=== PATIENT | female | born 1990 | race Caucasian/White ===

== ENCOUNTER 2018-08-07 21:00 | Inpatient (IN) | payer OTHER ==
[2018-08-08] MEDS ORDERED: Ibuprofen 800 MG TAB PO PRN (00:04)
[2018-08-08] MEDS ORDERED: Lactated Ringer's 1,000 ML IV SCH ×2 (00:04→20:47)
[2018-08-08] MEDS ORDERED: NS / Oxytocin 40 units/1000ml 1,000 ML IV PRN (00:04)
[2018-08-08] MEDS ORDERED: Promethazine HCl 25 MG/ML VIAL IM PRN ×3 (00:04→17:27)
[2018-08-08] MEDS ORDERED: Ondansetron PF 4 MG/2 ML Vial IVP PRN ×4 (00:04→20:47)
[2018-08-08] MEDS ORDERED: HYDROcodone/Acetaminophen 5/325 mg Tablet PO PRN ×4 (00:04→20:47)
[2018-08-08] MEDS ORDERED: Butorphanol Tartrate 1 MG/ML VIAL SLOW IVP PRN (00:04)
[2018-08-08] MEDS ORDERED: Lidocaine 1% (PF) 30 ML VIAL SC PRN (00:04)
[2018-08-08 00:18] LABS: Hemoglobin 12.8 g/dL (12.0-16.0); Mean Corpuscular HGB CONC 34.1 g/dL (32.0-36.0); Mean Corpuscular Hemoglobin 32.3 pg (27.0-31.0); Mean Corpuscular Volume 94.7 fL (78.0-98.0); Platelet Count 152 thou/uL (130-400); RBC Distribution Width 11.8 % (11.5-14.5); Red Blood Cell (RBC) Count 3.96 mill/uL (4.20-5.40); White Blood Cell (WBC) Count 14.4 thou/uL (4.8-10.8)
[2018-08-08] MEDS ORDERED: Misoprostol 100 MCG TAB ONE (00:36)
[2018-08-08] MEDS: Misoprostol 100 MCG TAB VAG SCH ×3 (00:40→07:25)
[2018-08-08] MEDS: Lactated Ringer's 1,000 ML IV SCH ×2 (00:50→09:46)
[2018-08-08 00:53] LABS: Hep B Surf Ag Non-Reactive S/CO (NonReactive); Syphilis Antibody Nonreactive (Nonreactive); Syphilis Antibody Index 0.03 S/CO (<1.00 Non-Reactive)
[2018-08-08 01:14] VITALS: BMI 25.6
[2018-08-08] MEDS: NS w/ Oxytocin 10 units 500 ML IV SCH ×2 (01:31→08:22)
[2018-08-08] MEDS ORDERED: Terbutaline Sulfate 1 MG/ML VIAL ONE (05:37)
[2018-08-08] MEDS ORDERED: Fentanyl 4 mcg/Bup 0.1% Cadd 100 ML ONE ×2 (08:47→15:14)
[2018-08-08] MEDS ORDERED: Lidocaine 1.5%/Epinephrine 1:200,000 5 ML AMPUL IJ ONE (08:48)
[2018-08-08] MEDS ORDERED: Acetaminophen 325 MG TAB PO PRN ×2 (09:05→20:47)
[2018-08-08] MEDS ORDERED: diphenhydrAMINE 50 MG/ML VIAL IVP PRN ×2 (09:05→17:27)
[2018-08-08] MEDS ORDERED: Naloxone HCl 0.4 mg/ml Vial IVP PRN ×4 (09:05→17:27)
[2018-08-08] MEDS ORDERED: ePHEDrine/0.9% NaCl/PF SYRINGE 50 mg/10 ml SLOW IVP PRN (09:05)
[2018-08-08] MEDS ORDERED: Eucerin (Mineral Oil/Petrolatum,White) 30 gm Jar TOP PRN ×2 (09:05→17:27)
[2018-08-08] MEDS ORDERED: Lactated Ringer's 500 ML IV PRN (09:05)
[2018-08-08] MEDS ORDERED: Fentanyl 4 mcg/Bupivacaine 0.1% Cassette 100 ML EPIDURAL SCH (09:15)
[2018-08-08] MEDS ORDERED: Communication Order-Pharmacy FS SCH ×2 (09:15→17:30)
[2018-08-08] MEDS ORDERED: Dexamethasone 20 MG/5 ML VIAL ONE (13:52)
[2018-08-08] MEDS ORDERED: Ketorolac Tromethamine 30 MG/ML VIAL ONE (13:52)
[2018-08-08] MEDS ORDERED: Ondansetron PF 4 MG/2 ML Vial ONE (13:52)
[2018-08-08] MEDS ORDERED: CEFAZOLIN 2 GM in Sodium Chloride 0.9% 100 ML IVPB SCH (17:00)
--- NOTE | 2018-08-08 17:04 | PDOC.LDPN ---
Labor & Delivery Progress Note - Subjective Subjective: comfortable - Objective Vital signs reviewed and normal: yes General: NAD Uterine fundus: non tender Dilation: 4 Effacement: 90% Station: 0 FHT: category 1, variable decelerations AROM: clear fluid IUPC placed: yes Plan: other (no cervical change with 250+ mvu for 5 hr. for primary cs )
[2018-08-08] MEDS ORDERED: CEFAZOLIN 2 GM in Premix Bag 1 BAG IVPB SCH (17:15)
[2018-08-08] MEDS ORDERED: Bicitra 30 ML UDCUP PO SCH (17:15)
[2018-08-08] MEDS ORDERED: Naloxone HCl 0.4 mg/ml Vial IV PRN (17:27)
[2018-08-08] MEDS ORDERED: Meperidine HCl/PF 25 MG/ML VIAL SLOW IVP PRN (17:27)
[2018-08-08] MEDS ORDERED: L&D-Morphine 4 MG/ML VIAL SLOW IVP PRN (17:27)
[2018-08-08] MEDS ORDERED: Promethazine HCl 25 MG SUPP PR PRN (17:27)
[2018-08-08] MEDS ORDERED: Ondansetron HCl/PF 4 MG/2 ML Vial IVP PRN (17:27)
[2018-08-08] MEDS ORDERED: Ketorolac Tromethamine 30 MG/ML VIAL IVP SCH (17:30)
[2018-08-08] MEDS ORDERED: Azithromycin 500 MG in Sodium Chloride 0.9% 250 ML 250 ML IVPB SCH (17:30)
[2018-08-08 18:03] LABS: Actual Bicarbonate (HCO3v) 28 mEq/L (22-28); Base Excess -0.3 mEq/L (-2.0 to +3.0); pH (Cord, venous) 7.29 (7.32-7.43)
[2018-08-08 18:05] LABS: Actual Bicarbonate (HCO3a) 27.9 mEq/L (22-28)
[2018-08-08] MEDS ORDERED: Bupivacaine/Epinephrine 0.25% 30 ML VIAL ONE (20:11)
[2018-08-08] MEDS ORDERED: Meperidine HCl/PF 25 MG/ML VIAL IM PRN (20:47)
[2018-08-08] MEDS ORDERED: Zolpidem Tartrate 5 MG TAB PO PRN (20:47)
[2018-08-08] MEDS ORDERED: diphenhydrAMINE 25 MG CAP PO PRN (20:47)
[2018-08-08] MEDS ORDERED: NS / Oxytocin 40 units/1000ml 1,000 ML IV SCH (20:47)
[2018-08-08] MEDS ORDERED: Ibuprofen 800 MG TAB PO SCH (22:00)
[2018-08-08] MEDS: Ketorolac Tromethamine 30 MG/ML VIAL IVP PRN (23:45)
[2018-08-09] MEDS: Misoprostol 100 MCG TAB VAG SCH ×9 (00:44→21:25)
[2018-08-09] MEDS: Docusate Calcium (SURFAK) 240 MG CAP PO SCH ×3 (00:48→21:23)
[2018-08-09] MEDS: Lactated Ringer's 1,000 ML IV SCH ×3 (00:49→13:55)
--- NOTE | 2018-08-09 05:14 | OP ---
DATE OF PROCEDURE: 08/08/2018 PREOPERATIVE DIAGNOSES: Failure to progress at 5 cm, 39- to 40-week gestation despite greater than 250 mVu for more than 4 hours at 4-5 cm. POSTOPERATIVE DIAGNOSES: Failure to progress at 5 cm, 39- to 40-week gestation despite greater than 250 mVufor more than 4 hours at 4-5 cm and persistent occiput posterior presentation. PROCEDURE PERFORMED: Primary low transverse section without extension. DRY WALL NAILER: Howard Mcduffie MD ANESTHESIA: Epidural by Kingsley Etienne MD MEDICATIONS: 2 g Ancef and 500 of Zithromax. PREINCISION: DVT prophylaxis with SCDs. DRAINS: [place] to gravity. OPERATIVE FINDINGS: 1. Female infant, Apgars and weight pending through nursery. 2. Clear fluid, persistent OP presentation. 3. Normal-appearing uterus, tubes, and ovaries bilaterally. 4. Hemostasis, clear urine, counts correct at the end of the procedure. DISPOSITION: Recovery room in good condition. DESCRIPTION OF PROCEDURE: After obtaining appropriate operative consent, the patient was taken to operating room, where epidural had been dosed to appropriate level. The patient was prepped and draped in the usual manner. Pfannenstiel incision was made through the skin and carried down to the fascia, which was incised sharply and extended superiorly and laterally with curved Andrade scissors. Rectus dissected off sharply superiorly and inferiorly, divided in midline. Peritoneum entered bluntly, taking care to avoid trauma to the underlying viscera. Dedrick O retractor placed inside. Vesicouterine peritoneal reflection identified and low-transverse hysterotomy made at the level of the reflection. Clear fluid was encountered superiorly and laterally with finger fractionation. The infant's head elevated to hysterotomy, OP presentation. Fluid around the abdomen suctioned. Cord was clamped, cut, and handed off to the team in attendance. Cord blood sample obtained. Cord gas obtained. Placenta delivered manually. Uterus was curetted out and hysterotomy noted to be without extension. It was closed using a running locking #1 Monocryl suture in 2 layers. Gutters were irrigated out bilaterally and reinspection of hysterotomy revealed it to be dry. The Dedrick O retractor was removed and counts were correct x1. Rectus was inspected and noted to be dry. Fascia reapproximated using running continuous 0 PDS suture. Counts were correct x2. Subcu tissue was very thin and not reapproximated. Rendered hemostatic with Bovie cautery. Skin was reapproximated using 4-0 Monocryl and Dermabond. The patient was taken to recovery room in good condition. Job ID: [id number]
[2018-08-09] MEDS: Ketorolac Tromethamine 30 MG/ML VIAL IVP PRN ×2 (05:40→12:09)
--- NOTE | 2018-08-09 06:11 | PDOC.PP ---
Post Progress Note Post Day #: POD#1 Subjective: Resting, no c/o. PO intake tolerated: yes Flatus: no Ambulation: no Vital Signs (12 hours) Temp Pulse Resp BP Pulse Ox 08/09/18 04:00 98.5 F 54 L 18 103/89 96 08/08/18 23:20 98.6 F 62 18 118/72 96 08/08/18 22:15 97.6 F 52 L 18 115/63 96 08/08/18 20:15 98.2 F 66 18 116/77 99 Weight Weight 63.503 kg - Physical Examination General: NAD Respiratory: non-labored breathing Abdominal: no distention Skin: CS incision dry & intact Psychiatric: normal affect Result Diagrams: 08/07/18 23:12 Additional Labs: Post Labs Blood Type A POSITIVE 08/07/18 23:12 Hep Bs Antigen Non-Reactive S/CO (NonReactive) 08/07/18 23:12 - Assessment/Plan Doing well s/p C/S. Routine postop care.
[2018-08-09 07:53] LABS: Hemoglobin 12.2 g/dL (12.0-16.0); Mean Corpuscular HGB CONC 33.9 g/dL (32.0-36.0); Mean Corpuscular Hemoglobin 32.5 pg (27.0-31.0); Mean Corpuscular Volume 95.9 fL (78.0-98.0); Mean Platelet Volume 9.2 fL (7.4-10.4); Platelet Count 179 thou/uL (130-400); RBC Distribution Width 11.7 % (11.5-14.5); Red Blood Cell (RBC) Count 3.76 mill/uL (4.20-5.40); White Blood Cell (WBC) Count 28.1 thou/uL (4.8-10.8)
[2018-08-09] MEDS ORDERED: Adacel (T-DAP) 0.5 ML SYRINGE IM ONE (09:00)
[2018-08-09] MEDS ORDERED: Prenatal Vitamin 1 TAB PO SCH (09:00)
[2018-08-09] MEDS: Prenatal Vitamin 1 TAB PO SCH (09:53)
[2018-08-09] MEDS: Ibuprofen 800 MG TAB PO SCH (21:23)
[2018-08-09] MEDS: Simethicone Chewable 80 MG TAB PO PRN (21:24)
--- NOTE | 2018-08-10 01:34 | PDOC.PP ---
Post Progress Note Post Day #: 2 (today at 1700). Subjective: Patient requests discharge home today by noon (was asking to go home at 1900 shift change) PO intake tolerated: yes Flatus: yes Ambulation: yes Vital Signs (12 hours) Temp Pulse Resp BP BP 08/09/18 19:29 97.7 F 89 18 98/53 L 08/09/18 17:00 97.6 F 83 18 101/58 L Weight Weight 140 lb - Physical Examination General: NAD Cardiovascular: no m/r/g Respiratory: clear to auscultation bilaterally Abdominal: + bowel sounds, lochia, no distention, appropriately TTP Extremities: negative homans (B) Skin: CS incision dry & intact (Skin sutured and DB in place), no rash Neurological: no gross focal deficits Psychiatric: A&Ox3, normal affect Result Diagrams: 08/09/18 06:43 Additional Labs: Post Labs Blood Type A POSITIVE 08/07/18 23:12 Hep Bs Antigen Non-Reactive S/CO (NonReactive) 08/07/18 23:12 (1) Single delivery by section Code(s): O82 - ENCOUNTER FOR DELIVERY WITHOUT INDICATION Status: Acute - Assessment/Plan Patient is POD 2 today (48 hrs at 1700) doing well. I offerred her continued in house observation as she had a CS in labor, but patient desires [facility] home by noon today. I discussed possible risks for PP metritis, but patient desires release. I did review all vitals and confirmed she is afebrile. OK for home at noon today, as requested. Meds called to pharmacy by Dr Benitez. I recommended wound check in 2 weeks. Final DX: section, delivered Term delivery Routine
[2018-08-10] MEDS: Lactated Ringer's 1,000 ML IV SCH ×2 (04:14→11:54)
[2018-08-10] MEDS: Misoprostol 100 MCG TAB VAG SCH ×3 (04:14→12:25)
[2018-08-10] MEDS: NS w/ Oxytocin 10 units 500 ML IV SCH (04:14)
[2018-08-10] MEDS: Ibuprofen 800 MG TAB PO SCH (05:45)
[2018-08-10] MEDS: Docusate Calcium (SURFAK) 240 MG CAP PO SCH (09:58)
[2018-08-10] MEDS: Simethicone Chewable 80 MG TAB PO PRN (09:58)
[2018-08-10] MEDS: Prenatal Vitamin 1 TAB PO SCH (09:58)
[2018-08-10 11:35] VITALS: BP 104/70; TEMP 97.6
== END 2018-08-10 12:30 | disposition home or self-care (01) | DRG 788 ==
LOC: L&D 23:54 → 3SW 08-08 20:46
PROVIDERS: ADMIT Obstetrics & Gynecology; ATTEND Obstetrics & Gynecology
PROC: 10D00Z1 Extraction of Products of Conception, Low, Open Approach (ICD-10-PCS; principal; 2018-08-08)
DX: O64.0XX0 Obstructed labor due to incomplete rotation of fetal head, not applicable or unspecified (principal); O76 Abnormality in fetal heart rate and rhythm complicating labor and delivery; Z3A.39 39 weeks gestation of pregnancy; Z37.0 Single live birth
CPT/HCPCS: 36415; 51702; 82805; 85027; 86780; 86850; 86900; 86901; 87340; J0456; J0690; J1100; J1885; J2405; J3105; J3490; J7050

== ENCOUNTER 2019-11-05 11:29 | Outpatient (CLI) | payer OTHER ==
[2019-11-06 13:51] LABS: SARS-CoV-2 MS2 Positive; SARS-CoV-2 N Gene Negative; SARS-CoV-2 S Gene Negative; SARS-CoV-2 orf1ab Negative
== END 2019-11-05 11:30 | disposition home or self-care (01) ==
LOC: LABBT 11:29
PROVIDERS: ATTEND Obstetrics & Gynecology
DX: Z01.812 Encounter for preprocedural laboratory examination (principal); Z11.59 Encounter for screening for other viral diseases
CPT/HCPCS: 87635; U0003

== ENCOUNTER 2020-05-02 12:10 | Outpatient (CLI) | payer OTHER ==
[2020-05-02 13:20] LABS: Hemoglobin 14.1 g/dL (12.0-16.0); Mean Corpuscular HGB CONC 33.6 G/DL (32.0-36.0); Mean Corpuscular Hemoglobin 30.7 PG (27.0-33.0); Mean Corpuscular Volume 91.5 fl (80.0-100.0); Mean Platelet Volume 10.1 fl (7.4-10.4); Platelet Count 209 10x3/uL (130-400); RBC Distribution Width 12.3 % (11.5-14.5); Red Blood Cell (RBC) Count 4.59 10x6/uL (3.90-5.20); White Blood Cell (WBC) Count 7.7 10x3/uL (4.5-11.0)
[2020-05-02 13:51] LABS: BHCG - Serum Negative (NEGATIVE); Pregs Control Background? CLEAR/WHITE (CLR/WHITE); Pregs Control Bar Appear? YES (CONTROL BAR)
[2020-05-02 22:27] LABS: SARS-CoV-2 MS2 Positive; SARS-CoV-2 N Gene Negative; SARS-CoV-2 S Gene Negative; SARS-CoV-2 by NAA Not Detected (NotDetected); SARS-CoV-2 orf1ab Negative
== END 2020-05-02 12:11 | disposition home or self-care (01) ==
LOC: LABBT 12:10
PROVIDERS: ATTEND Obstetrics & Gynecology
DX: Z01.812 Encounter for preprocedural laboratory examination (principal); Z20.828 Contact with and (suspected) exposure to other viral communicable diseases
CPT/HCPCS: 84703; 85027; 86850; 86900; 86901; 87635; U0003

== ENCOUNTER 2020-05-07 10:03 | Day surgery (SDC) | payer OTHER ==
[2020-05-06 08:42] VITALS: BMI 20.4
--- NOTE | 2020-05-06 15:08 | HP ---
REASON FOR ADMISSION: Intraabdominal IUD, status post uterine perforation. HISTORY OF PRESENT ILLNESS: Ms. Baker is a 29-year-old, 2, para 2, status post x2. She underwent a delivery in October and had an IUD placed, copper ParaGard, in the office on 01/15. Placement was difficult and ultrasound immediately post placement revealed it to be in the mid aspect of the uterus. On followup a few weeks later, she was found to not have the IUD strings visible and hysteroscopy was unable to locate it. CT scan revealed it to be in the pelvis, extrauterine, in the upper right area contacting several small bowel loops. Scheduled procedure today is for retrieval. SUPPLY CHAIN LOGISTICS MANAGER HISTORY: As noted. G3, P2, AB 1, x2. PAST MEDICAL HISTORY: None. PAST SURGICAL HISTORY: Tonsil and adenoids and C-sections. ALLERGIES: NONE. MEDICATIONS: None. SOCIAL HISTORY: Denies tobacco, alcohol, or drug abuse. FAMILY HISTORY: Noncontributory. REVIEW OF SYSTEMS: Noncontributory. PHYSICAL EXAMINATION: GENERAL: Thin white female, in no acute distress. VITAL SIGNS: Height 5 feet 1 inch tall. Blood pressure 122/72, pulse 85, respirations 18. HEENT: Within normal limits. LUNGS: Clear to auscultation bilaterally. HEART: Regular rate and rhythm. BREASTS: No masses bilaterally. ABDOMEN: Soft and nontender. No rebound or guarding. PELVIC: Vulva without lesions. Vagina without discharge. Cervix, nulliparous. Uterus; anteverted, 4 to 6-week size. Adnexa, no masses bilaterally. LABORATORY DATA: CT scan with findings as noted. Negative test. Of note, the patient's is likely to get a vasectomy soon. IMPRESSION: Intraperitoneal intraabdominal copper intrauterine device, status post perforation. PLAN: Laparoscopic retrieval. Appropriate antibiotic and DVT prophylaxis. The patient understands risks and benefits of procedure. May need to utilize C-arm for location intraoperatively. We will proceed with the aforementioned procedure on 05/07/2020. Job ID: [id number]
[~2020-05-07 10:03] MED LIST: Dexamethasone 20 MG/5 ML VIAL ONE; Glycopyrrolate 0.2 MG/ML 5 ML SYRINGE ONE; Ketorolac Tromethamine 30 MG/ML VIAL ONE; Lidocaine 1% PF 5 ML VIAL ONE; Ondansetron PF 4 MG/2 ML Vial ONE; PROPOFOL 200 MG/20 ML VIAL ONE; Rocuronium Bromide 10 MG/ML (10ML VIAL) ONE
[2020-05-07] MEDS ORDERED: Fentanyl 100 MCG/2 ML VIAL ONE ×3 (10:53→13:21)
[2020-05-07] MEDS ORDERED: Bupivacaine PF 0.5% 30 ML VIAL ONE (10:57)
[2020-05-07] MEDS ORDERED: Lidocaine 1% w/Epinephrine 1:100K 20 ML VIAL ONE (10:57)
[2020-05-07] MEDS ORDERED: Midazolam HCl 2 mg/2 ml Vial ONE (11:46)
--- NOTE | 2020-05-07 13:58 | OP ---
DATE OF PROCEDURE: 05/07/2020 PREOPERATIVE DIAGNOSIS: Uterine perforation of intrauterine device with CT scan indicating intrauterine device located in right upper edge of pelvis. POSTOPERATIVE DIAGNOSES: Uterine perforation of intrauterine device with CT scan indicating intrauterine device located in right upper edge of pelvis and extensive adhesions of copper intrauterine device to several knuckles of small bowel in the mid ileal region. PROCEDURES PERFORMED: Diagnostic laparoscopy with laparoscopic retrieval and laparoscopic lysis of adhesions. CO-SURGEON: Thomas Hood MD. ANESTHESIA: General endotracheal. ESTIMATED BLOOD LOSS: Less than 50 mL. COMPLICATIONS: None. SPECIMEN RETRIEVED: IUD for gross only. OPERATIVE FINDINGS: 1. Normal-appearing uterus. No approximate evidence of uterine perforation. 2. Normal-appearing tubes and ovaries bilaterally. 3. IUD string identified with IUD encased in approximately 3 to 4 cm long segment of mid ileum on the mesenteric side with adhesions, lysed. 4. Retrieval of IUD with good hemostasis and clear urine at the end of the procedure. DISPOSITION: Recovery room in good condition. DESCRIPTION OF OPERATIVE PROCEDURE: The patient was taken to the operating room. General endotracheal anesthesia was achieved without difficulty. She received 2 g of Ancef IV. She was prepped and draped in dorsal lithotomy position. Weighted speculum was placed in vagina after vaginal prep with Betadine and drainage of her bladder, single-tooth tenaculum was placed on anterior aspect of the cervix and a Hulka manipulator placed inside. Tenaculum and speculum removed. [employer] Launch Commander changed his gloves and turned attention to abdominal portion of the procedure. A 5 mL of lidocaine with epinephrine was injected to the base of umbilicus and a 5 mm skin incision was made with an 11 blade. Veress needle placed inside the abdominal cavity. Insufflation was carried out with carbon dioxide maximum pressure of 15. A 5 mm trocar was placed using Optiview technique and confirmation of entry into the peritoneal cavity without trauma to the underlying viscera was noted. A 5 mm trocar was then placed approximately one-third between the most wide aspect in the middle aspect of the patient's previous Pfannenstiel incision on the left and a 5 mm trocar placed. The patient was placed in Trendelenburg position and bowel was mobilized. After approximately 5 to 10 minutes of searching, the strings for the IUD were identified. They were grasped with a [place] and elevated. The strings were noted to be going into a conglomeration and knuckle of the ileum on the superior mesenteric side posteriorly. With gentle dissection, I could not discern as to whether or not the IUD was actually intraluminal on the ileum or just in a significant area of adhesions. A consult to Dr. Hood intraoperatively, who presented and added two more 5 mm trocars, and with blunt and sharp dissection, dissected the IUD. Please see his note. Small areas of bleeding on the mesenteric side of the ileum were rendered hemostatic with 5 mm clip appliers. Once we retrieved IUD intact and his inspection revealed there to be no evidence of intraluminal damage or injury to the small bowel, he left the room. Suction irrigation was carried out. Good hemostasis was noted. placed across the surgical field. The abdomen was desufflated of carbon dioxide as all four trocars were removed. They were all 5 mm trocars. fascia was not reapproximated. Skin was reapproximated x4 using 4-0 Monocryl and Dermabond, and the Hulka manipulator was removed. The patient was awakened, extubated, taken to the recovery room in good condition. She will be entered into routine post operative care. Anticipate p.m. discharge home with ER precautions and close followup if the patient develops any reasons to re-present to the emergency room. Job ID: [id number]
[2020-05-07] MEDS ORDERED: HYDROcodone/Acetaminophen 5/325 mg Tablet ONE (15:06)
--- NOTE | 2020-05-07 18:53 | OP ---
DATE OF PROCEDURE: 05/07/2020 PREOPERATIVE DIAGNOSIS: Extruded IUD, intraabdominal cavity. POSTOPERATIVE DIAGNOSIS: Extruded IUD, intraabdominal cavity. PROCEDURE PERFORMED: Intraoperative consultation requested by Dr. Naseem Benitez. Laparoscopic resection of foreign body imbedded in the mesentery and scar tissue adjacent to the ileum. ENGINEER INTERN: Dr. Naseem Benitez. ANESTHESIA: General anesthesia. DESCRIPTION OF PROCEDURE: Dr. Naseem Benitez had initiated laparoscopy to recover the IUD foreign body laparoscopically. He had an infraumbilical port and abdominal port. He appreciated the IUD to be imbedded adjacent to the distal third, mid third junction of the ileum, imbedded into the mesentery adjacent to the small bowel, seemingly possibly intraluminal. He requested consultation intraoperatively to help evaluate this and treat this. On entering the operating room, the port sites were noted as described in the left subcostal and left lower quadrant lateral incision made and 5 ports placed. Using the other ports, we were able laparoscopically dissect the IUD foreign body from scar tissue and the adjacent mesentery and scar tissue adjacent to the small bowel without violating it. The IUD was removed. Small bowel inspected. Hemostasis gained with clips and cautery. Good hemostasis noted. Aline applied. Small bowel carefully inspected, noted to be intact without violation. At this point, Dr. Benitez completed the laparoscopy, evacuated pneumoperitoneum and closing the port sites. The patient tolerated the procedure well. Job ID: [id number]
== END 2020-05-07 16:10 | disposition home or self-care (01) ==
LOC: SDC 10:03
PROVIDERS: ATTEND Obstetrics & Gynecology
PROC: 0UC98ZZ Extirpation of Matter from Uterus, Via Natural or Artificial Opening Endoscopic (ICD-10-PCS; principal; 2020-05-07)
DX: T83.32XA Displacement of intrauterine contraceptive device, initial encounter (principal)
CPT/HCPCS: 88300; J0690; J1100; J1885; J2250; J2405; J2704; J3010; S0020